=== PATIENT | male | born 1950 | race Caucasian/White ===

== ENCOUNTER → 2016-07-16 | Outpatient (CLI) | payer BC ==
[~2016-07-16] MED LIST: ACET5LIQ PO; CIPR1TAB11 PO; ENOX120I SQ; GUAI1LIQ7 PEG; METR-163 PO; MUCINEX PO; ONDA-63 PEG; TANGY TANGERINE PO; WARF5TAB7 PO; WARF7.5T PO; WARF7.5T4 PO; [UNRECOGNIZED DRUG - OTHER]; [UNRECOGNIZED DRUG - OTHER] PEG
== END | disposition home or self-care (01) ==
LOC: C.LABSPEC 12:14
PROVIDERS: ATTEND Registered Nurse
DX: T85.848A Pain due to other internal prosthetic devices, implants and grafts, initial encounter (principal); X58.XXXA Exposure to other specified factors, initial encounter

== ENCOUNTER → 2016-07-18 | Outpatient (CLI) | payer BC, OTHER ==
[2016-07-18 09:32] VITALS: BP 105/66; PULSE 82; TEMP 36.7; O2SAT 96
--- NOTE | 2016-07-18 10:39 | Radiation Oncology Follow-Up ---
Radiation Oncology Follow-Up Date of Visit Jul 18, 2016. 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 Chemotherapy comprised of weekly cisplatin Radiation completed 06/18/2016 received 7000 cGy Last Edited By: Alethea Salomon on Jun 28, 2016 12:52 (Alethea Salomon PA-C) History of Present Illness Mr. Fagan is a 66-year-old male with a history of chewing tobacco who recently presented with a right palpable neck mass. He was referred by his primary care physician and had a CT neck completed on 03/18/2016 which revealed : "IMPRESSION: 1. Partially necrotic mass mid right soft tissue neck region involving the anterior margin of the sternocleidomastoid muscle as well as the medial inferior aspect of the right parotid. 2. No evidence for airway compromise although there is very subtle right peritonsillar prominence as compared to the contralateral left. 3. Probable left retroclavicular 1.5 cm node. 4. Neoplastic processes diagnosis of exclusion." The patient was subsequently referred to Dr. Summers evaluated the patient and performed an examination which revealed induration of the right tonsil with firmness to palpation that extended to the inferior pole of the right tonsil but no involvement of the base of tongue. Dr. Summers also performed an NPL exam which did not reveal any extension to the base of tongue or any other involvement beyond the right tonsil. The patient was subsequently referred to Dr. Curiel from ENT at [facility] who did examine the patient and attempted 1 biopsy in the office and then took him to the operating room for a [employer] laryngoscopy with biopsy on 03/26/2016. He did biopsy the right palatine tonsil which was positive for non-keratinized squamous cell carcinoma (p16 status is unavailable the time of our consultation from the pathology report and has been requested). In conclusion, Dr. Curiel advised against transoral resection of the tonsillar tumor due to a retropharyngeal carotid and recommended up front chemotherapy and radiation therapy. The patient subsequently had a PET/CT scan on 04/01/2016 which showed no evidence of distant metastatic disease and reported these findings in the head and neck region: "HEAD AND NECK: There is 1.8 cm FDG avid right tonsillar mass which demonstrates intense FDG uptake with an SUV max of 7. There is again noted the right neck mass/lymph nodes anterior to the right sternocleidomastoid muscle. This measures 4.0 x 2.4 cm. The necrosis may have resolved. This also demonstrates intense FDG uptake with an SUV max of 5.7. There is moderate FDG uptake associated with a right lateral retropharyngeal 1 cm lymph node demonstrating an SUV max of 3. This is consistent with a metastatic focus." The patient was subsequently seen in consultation by Dr. Jean-Paul France from medical oncology who discussed chemotherapy and radiation therapy. The patient and his family stated they wanted to further considered options including homeopathic medicine. In the interim, we are seeing the patient to discuss the role of radiation therapy. Overall, the patient is doing relatively well. He states his energy, appetite and weight are all stable. He denies any dysphagia. He has no other complaints. He completed combined radiation and chemotherapy. Radiation was completed 06/18 he received 7000 cGy. (Alethea Salomon PA-C) Interim History Over this past month he has steadily increased his oral intake. He is eating solid foods. His taste is steadily improving. He continues to have xerostomia. He drinks water frequently. He is using Biotene as well as salt water rinses. His weight is stable. He did have a small red area just beside the PEG tube insertion site. This was cultured. Results are pending. This was performed at gastroenterology. He has mild drainage that occurs daily around the site. There is no area of increasing redness around the tube. He has been seen at medical oncology and there is been recommendation for a PET scan within the next 2 weeks. He is seeing on Friday. (Alethea Salomon PA-C) Allergies Coded Allergies: No Known Allergies (Verified , 06/21/16) Home Medications Scheduled Guaifenesin (Mucinex Chest Congestion), 2 OZ PEG TID Multiple Vitamins W/ Minerals (Multivitamin), 2 TSP PEG DAILY Warfarin Sod (Jantoven), 7.5 MG PO DAILY Scheduled PRN Acetaminophen (Tylenol Children's Susp), 30 ML PO DAILY PRN for Pain or Fever Review of Systems Gastrointestinal: Symptoms: Constipation GI Comments: takes extra fiber thru peg tube as needed Oral: Symptoms: Scant Saliva/Dry Mouth, Mild Soreness, Thick/Viscid/Mucid Saliva Other Oral Symptoms: some difficulty swallowing , tongue is sore, sl sore throat Respiratory: Symptoms: WNL Urinary: Symptoms: Nocturia Comments: nocturia times 6 - 7 times, drinking a lot of water Skin: Symptoms: No Problems (Alethea Salomon PA-C) Physical Exam Vital Signs Date Time Temp Pulse Resp B/P Pulse Ox O2 Delivery O2 Flow Rate FiO2 07/18/16 09:32 36.7 82 16 105/66 96 Pain: Side: Bilateral Patient Pain Scale: 0 - 10 Initial Pain Intensity: 0.0 Fatigue: None General Appearance: no apparent distress Eyes: normal inspection, EOMI ENT: hearing grossly normal, + pertinent finding (there is one small area of mucositis noted in the right soft palate area. The mouth has greatly improved over the past month. There are no visible lesions in the area of his tonsil. There are no exudates of the tongue or buccal mucosa.) Neck: no adenopathy Respiratory/Chest: lungs clear, no respiratory distress, no accessory muscle use Cardiovascular: regular rate, rhythm, no gallop, no murmur Abdomen: non tender, soft Extremities: no pedal edema Neurologic/Psychiatric: no motor/sensory deficits, alert, normal mood/affect Lymphatic: no adenopathy (Alethea Salomon PA-C) Laboratory Studies Test 05/21/16 21:45 05/21/16 23:00 06/21/16 21:40 06/25/16 14:30 White Blood Count 5.90 K/uL (4.8-10.8) 1.90 K/uL (4.8-10.8) Red Blood Count 4.21 M/uL (4.7-6.1) 2.89 M/uL (4.7-6.1) Hemoglobin 12.7 g/dL (14.0-18.0) 8.9 g/dL (14.0-18.0) Hematocrit 36.5 % (42-52) 25.5 % (42-52) Mean Corpuscular Volume 86.7 fL (80-100) 88.2 fL (80-100) Mean Corpuscular Hemoglobin 30.2 pg (25-34) 30.8 pg (25-34) Mean Corpuscular Hemoglobin Concent 34.8 g/dl (32-36) 34.9 g/dl (32-36) Platelet Count 183 K/uL (130-400) 118 K/uL (130-400) Mean Platelet Volume 9.9 fL (7.4-10.4) 9.3 fL (7.4-10.4) Neutrophils (%) (Auto) 85.0 % 61.0 % Lymphocytes (%) (Auto) 4.9 % 11.1 % Monocytes (%) (Auto) 9.2 % 27.4 % Eosinophils (%) (Auto) 0.5 % 0.5 % Basophils (%) (Auto) 0.2 % 0.0 % Neutrophils # (Auto) 5.02 K/uL (1.4-6.5) 1.16 K/uL (1.4-6.5) Lymphocytes # (Auto) 0.29 K/uL (1.2-3.4) 0.21 K/uL (1.2-3.4) Monocytes # (Auto) 0.54 K/uL (0.11-0.59) 0.52 K/uL (0.11-0.59) Eosinophils # (Auto) 0.03 K/uL (0-0.5) 0.01 K/uL (0-0.5) Basophils # (Auto) 0.01 K/uL (0-0.2) 0.00 K/uL (0-0.2) RDW Standard Deviation 39.4 fL (36.4-46.3) 45.8 fL (36.4-46.3) RDW Coefficient of Variation 12.7 % (11.5-14.5) 15.4 % (11.5-14.5) Immature Granulocyte % (Auto) 0.2 % 0.0 % Immature Granulocyte # (Auto) 0.01 K/uL (0.00-0.02) 0.00 K/uL (0.00-0.02) Sodium Level 140 mmol/L (136-145) 139 mmol/L (136-145) Potassium Level 4.2 mmol/L (3.5-5.1) 4.7 mmol/L (3.5-5.1) Chloride Level 101 mmol/L (98-107) 101 mmol/L (98-107) Carbon Dioxide Level 31 mmol/L (21-32) 30 mmol/L (21-32) Anion Gap 8.0 mmol/L (3-11) 8.0 mmol/L (3-11) Blood Urea Nitrogen 21 mg/dl (7-18) 24 mg/dl (7-18) Creatinine 1.00 mg/dl (0.60-1.40) 0.95 mg/dl (0.60-1.40) Est Creatinine Clear Calc Drug Dose 67.3 ml/min 70.8 ml/min Estimated GFR () 91.8 97.7 Estimated GFR (Non- 79.2 84.3 BUN/Creatinine Ratio 21.3 (10-20) 25.2 (10-20) Random Glucose 115 mg/dl (70-99) 100 mg/dl (70-99) Calcium Level 9.2 mg/dl (8.5-10.1) 8.7 mg/dl (8.5-10.1) Magnesium Level 2.1 mg/dl (1.8-2.4) Total Bilirubin 0.8 mg/dl (0.2-1) 0.2 mg/dl (0.2-1) Aspartate Amino Transferase (AST) 23 U/L (15-37) 12 U/L (15-37) Alanine Aminotransferase (ALT) 24 U/L (12-78) 13 U/L (12-78) Alkaline Phosphatase 65 U/L (45-117) 62 U/L (45-117) Total Protein 6.9 gm/dl (6.4-8.2) 6.0 gm/dl (6.4-8.2) Albumin 3.4 gm/dl (3.4-5.0) 2.9 gm/dl (3.4-5.0) Globulin 3.5 gm/dl (2.5-4.0) Albumin/Globulin Ratio 1.0 (0.9-2) Chemistry Specimen Hemolysis Urine Color DK YELLOW Urine Appearance CLEAR (CLEAR) Urine pH 8.5 (4.5-7.5) Urine Specific [place] 1.019 (1.000-1.030) Urine Protein NEG (NEG) Urine Glucose (UA) NEG (NEG) Urine Ketones 3+ (NEG) Urine Occult Blood NEG (NEG) Urine Nitrite NEG (NEG) Urine Bilirubin NEG (NEG) Urine Urobilinogen NEG (NEG) Urine Leukocyte Esterase NEG (NEG) Large Platelets 1+ Polychromasia 1+ Prothrombin Time 10.2 SECONDS (9.0-12.0) 12.0 SECONDS (9.0-12.0) Prothrombin Time INR 1.0 (0.9-1.1) 1.1 (0.9-1.1) PTT 25.9 SECONDS (21.0-31.0) Partial Thromboplastin Ratio 1.0 Direct Bilirubin < 0.1 mg/dl (0-0.2) Test 07/08/16 13:44 07/12/16 09:15 POC Prothrombin Time INR 2.4 (0.9-1.1) 2.3 (0.9-1.1) (Alethea Salomon PA-C) Assessment & Plan Plan: Continue regular follow-up with . He'll be seeing him on Friday. Continue regular follow-up with radical oncology. Patient was seen and examined by Dr. Quezada. He'll continue the Biotene and salt water rinses. We're going to discuss the timing of PET scan with medical oncology. We'll plan to perform NPL examination at his next visit. He is aware that the wound culture is pending. They will call gastroenterology they do not hear the results. Currently the area is very small and he does not have any enlarging area of redness around the PEG tube. We asked him to return to our office in 6 months. He may call if she has any questions or concerns in the interim. (Alethea Salomon PA-C) I agree with note created by Alethea Salomon PA-C. I reviewed the patient's chart and information with her. I have examined and evaluated the patient. I reviewed relevant clinical information and answered the patient's and/or family' s questions. (Veeral. Quezada MD) Total Time In Follow-Up I spent 15 minutes speaking to the patient performing examination. He has been 15 minutes reviewing information in completing this note. (Alethea Salomon PA-C) I spent 15 minutes examining and counseling the patient. (Veeral. Quezada MD) Copy To Terry Summers MD; Jean-Paul France D.O.; Rommel Adame M.D.
== END | disposition home or self-care (01) ==
LOC: C.ONC 09:28
PROVIDERS: ATTEND Radiology Radiation Oncology
DX: Z08 Encounter for follow-up examination after completed treatment for malignant neoplasm (principal); Z92.3 Personal history of irradiation; Z85.89 Personal history of malignant neoplasm of other organs and systems

== ENCOUNTER → 2016-08-16 | Day surgery (SDC) | payer BC ==
[2016-08-15 10:52] VITALS: Ht 167.6 cm; Wt 71.8 kg
[~2016-08-16] VITALS: Ht 167.6 cm; Wt 71.8 kg
[~2016-08-16] MED LIST changes: -ENOX120I SQ; -GUAI1LIQ7 PEG; -ONDA-63 PEG; -WARF7.5T PO; -WARF7.5T4 PO; -[UNRECOGNIZED DRUG - OTHER]; -[UNRECOGNIZED DRUG - OTHER] PEG
[2016-08-16 13:18] VITALS: TEMP 36.8
--- NOTE | 2016-08-16 13:49 | Endo History and Physical ---
History & Physical Date of Service: Aug 16, 2016. Chief Complaint: Patient no longer needs. Referring Physician: Dr. Quezada History of Present Illness 66 yo CM who presents for PEG tube removal as it is no longer needed. Past Medical History Gastrointestinal Disorder, Cancer, Thrombophlebitis Past Surgical History Hx Cardiac Surgery: No Hx Internal Defibrillator: No Hx Pacemaker: No Hx Abdominal Surgery: Yes (UMBILICAL HERNIA REPAIR) Hx Post-Op Nausea and Vomiting: No Hx Cancer Surgery: No Hx Thoracic Surgery: No Hx Orthopedic: No Hx Urinary Tract Surgery: No Family History Polyp Social History Smoking Status: Never Smoker Hx Substance Use: No Hx Alcohol Use: Yes (RARELY) Allergies Coded Allergies: No Known Allergies (Verified , 08/15/16) Current Medications Reported Home Medications Medications Dose Route/Sig Max Daily Dose Days Date Category Dose Instructions [Tangy Milano] 1 Dose PO QAM 08/15/16 Reported [Mucinex] 1 Dose PO TID 08/15/16 Reported TAKES LIQUID FORM Tylenol Children's Susp (Acetaminophen) Unknown Strength Liq 30 Ml PO DAILY PRN 06/21/16 Reported Vital Signs Weight (Kilograms): 71.82 Height (Feet): 5 Height (Inches): 6 Date Time Temp Pulse Resp B/P Pulse Ox O2 Delivery O2 Flow Rate FiO2 08/16/16 13:18 36.8 69 20 134/78 98 Room Air Physical Exam General Appearance: WD/WN, no apparent distress Respiratory/Chest: Auscultation: breath sounds normal Cardiovascular: Heart Auscultation: RRR Abdomen: Bowel Sounds: normal Inspection & Palpation: soft, non-distended, no tenderness, guarding & rebound Assessment and Plan Assessment: 66 yo CM who presents for PEG tube removal as it is no longer needed. Plan: Proceed with PEG tube removal.
[2016-08-16 13:55] VITALS: BP 125/76; PULSE 63; O2SAT 96
--- NOTE | 2016-08-16 13:56 | Discharge Instructions ---
Endoscopy Patient Instructions Date / Procedure(s) Performed Aug 16, 2016. Other Allergy Information Coded Allergies: No Known Allergies (Verified , 08/15/16) Discharge Date / Findings Aug 16, 2016. Successful PEG tube removal Medication Instructions Stopped Medication(s): Patient stopped coumadin 08/12/16. Patient using lovenox. Provider Instructions Following Day: - Return to full activity which may include returning to work/school. Diet Start your diet with liquids and light foods (jello, soup, juice, toast). Then advance diet as tolerated. Treatment For Common After Affects For mild abdominal pain, bloating, or excessive gas: - Rest - Eat lightly - Lie on right side Follow-Up Information Follow-up with Dr. Quezada as scheduled Anesthesia Information What You Should Know You have had a procedure that required some medicine to reduce anxiety and discomfort. This treatment is called moderate sedation. After receiving the treatment, you may be sleepy, but you will be able to breathe on your own. The effects of the treatment may last for several hours. Follow these instructions along with Activity/Diet recommendations noted above: * Do NOT do anything where dizziness or clumsiness would be dangerous. * Rest quietly at home today, then you can be up and about tomorrow. * Have a responsible person stay with you the rest of today. * You may have had an I.V. today. If so, you may take the dressing off later today. Recommendations Call your doctor if: * Trouble breathing * Continuous vomiting for more than 24 hours * Temperature above 101 degrees * Severe abdominal pain or bloating * Pain not relieved by pain medicine ordered * There is increased drainage or redness from any incision * A large amount of rectal bleeding greater than 2-3 tablespoons. (If you had a polyp/s removed or have hemorrhoids, a small amount of blood - from the rectum is to be expected.) * You have any unanswered questions or concerns. IN THE EVENT OF A SERIOUS EMERGENCY, GO TO THE NEAREST EMERGENCY ROOM Your discharge instructions were prepared by provider Satish Santizo. Patient Instructions Signature Page Yordy Blaisesharlene Patient (or Guardian) Signature/Date: I have read and understand the instructions given to me by my caregivers. Caregiver/RN/Doctor Signature/Date: The above-named patient and/or guardian has received patient instructions on this date. + Original Patient Signature Page (only) stays with chart. Please make copy for patient.
--- NOTE | 2016-08-16 14:05 | GI REPORT ---
Procedure Date: 08/16/2016 2:03 PM Procedure: Non-endoscopic Tube Procedure Indications: Remove PEG tube (no longer needed) Medicines: None Complications: No immediate complications. Estimated Blood Loss: Estimated blood loss: none. Procedure: After obtaining informed consent, the site was prepped and the procedure was performed. The procedure was accomplished without difficulty. The patient tolerated the procedure well. Findings: Due to an ability to resume oral intake, the patient no longer requires the gastrostomy tube. The gastrostomy tube was no longer necessary and required removal. The existing PEG site was cleaned. The existing PEG balloon was deflated and by using traction, removal was easily accomplished. Impression: - The gastrostomy tube was removed because it was no longer necessary. - No specimens collected. Recommendation: - Advance diet as tolerated. - Discharge patient to home (ambulatory). - Continue present medications. Satish Santizo, DO 08/16/2016 2:04:56 PM This report has been signed electronically. Note Initiated On: 08/16/2016 2:03 PM I attest to the content of the Intraoperative Record and orders documented therein, exceptions below
== END | disposition home or self-care (01) ==
LOC: C.GI 11:53
PROVIDERS: ATTEND Internal Medicine
DX: Z43.1 Encounter for attention to gastrostomy (principal)

== ENCOUNTER → 2016-09-16 | Outpatient (CLI) | payer BC ==
--- NOTE | 2016-09-16 12:08 | DIAGNOSTIC IMAGING REPORT ---
PET/CT CLINICAL HISTORY: Head and neck cancer. COMPARISON STUDY: PET/CT dated 04/01/2016. CT scan of the neck dated 03/08/2016. TECHNIQUE: One hour following the IV administration of 11.52 mCi of F-18 FDG, PET/CT examination was performed from the vertex through the bony pelvis. Noncontrast CT is performed for the purposes of anatomic correlation and attenuation correction. Note that this does not reflect a diagnostic CT examination. Images were reviewed on a separate [employer] independent workstation. Fused images were obtained. Standard uptake values reported are maximum values within the region of interest expressed in gm/mL. FINDINGS: PET FINDINGS: Head and neck: There is expected physiologic activity within the visualized brain parenchyma at the skull base and the salivary glands. The previously identified right tonsillar mass as well as FDG avid right cervical chain lymphadenopathy is no longer identified. No abnormal FDG activity localizes to the frontal soft tissues on today's examination. No cervical lymphadenopathy is seen. Thorax: Evaluation of the thorax demonstrates expected physiologic myocardial activity. Abdomen and pelvis: There is expected activity within the liver, spleen, kidneys, renal collecting system, and bladder. Low-level bowel activity is likely within physical limits. FDG activity in the left groin with a maximum SUV of 6.5 is likely related to previous herniorrhaphy. This is similar to the 04/01/2016 examination. There is intense FDG activity localizing the rectum/anus with a maximum SUV of 12.0. Unenhanced CT images: Brain parenchyma is normal as visualized. The bony orbits appear intact and the orbital contents are within normal limits. The paranasal sinuses appear clear. Small mastoid effusions are suspected. The salivary glands are normal as imaged. The thyroid gland is diminutive. No cervical lymphadenopathy is identified. The thoracic aorta is normal in caliber. The heart is normal in size and without pericardial effusion. There are scattered coronary artery calcifications. Emphysematous change is noted. There is no airspace consolidation or pleural effusion. No concerning pulmonary lesion is identified. No axillary, hilar, or mediastinal lymphadenopathy is seen. There are scattered hepatic cysts which measure up to 5 cm. Additional subcentimeter hepatic densities also likely represent cysts but are too small for definitive characterization. The gallbladder, spleen, adrenal glands, pancreas, and kidneys are grossly unremarkable. Renal pelvis is again noted on the left. The abdominal aorta is normal in course and caliber. No bowel obstruction is seen. There is mild to moderate colonic diverticulosis without CT evidence of acute diverticulitis. Normal appendix is identified. No peritoneal free air or abdominal ascites is seen. There is no abdominal, pelvic, or inguinal lymphadenopathy. The bladder, prostate, and seminal vesicles are normal as visualized. Findings suggest previous bilateral inguinal herniorrhaphy. No lytic or blastic bony lesions are identified. Mild degenerative change is observed throughout the spine. IMPRESSION: 1. The previously identified FDG avid right tonsillar mass and FDG avid right cervical adenopathy seen on 04/01/2016 have resolved. 2. No FDG avid disease is identified on today's examination. There is no evidence of distant metastatic disease. 3. There is intense FDG activity localizing the rectum/anus with a maximum SUV of 12.0. This is indeterminant, and correlation with direct visualization/colonoscopy is recommended for further assessment. 4. Mild emphysema. 5. Colonic diverticulosis without CT evidence of acute diverticulitis. 6. Additional findings as above. Electronically signed by: Vishal Staples M.D. 09/16/2016 12:06 PM Dictated Date/Time: 09/16/2016 11:36 AM
== END | disposition home or self-care (01) ==
LOC: C.PET 08:32
PROVIDERS: ATTEND Nurse Practitioner
DX: C09.0 Malignant neoplasm of tonsillar fossa (principal)

== ENCOUNTER → 2016-10-25 | Outpatient (CLI) | payer BC ==
[~2016-10-25] MED LIST changes: -ACET5LIQ PO; +ARTICHOKE EXTRACT PO; +MISCCAP PO; +MISCCAP80 PO; -MUCINEX PO; +NATT100C PO; +OMEG10007 PO; +OPTIRAY 320 IV PRN; +[UNRECOGNIZED DRUG - OTHER] PO
--- NOTE | 2016-10-25 08:06 | DIAGNOSTIC IMAGING REPORT ---
LEFT HEEL 2 VIEWS HISTORY: M77.32 Heel spur, [id number] COMPARISON: None. FINDINGS: There is no fracture or dislocation. Soft tissues are unremarkable. No radiopaque foreign bodies. Tiny plantar heel spur. IMPRESSION: No fractures. Tiny plantar heel spur. Electronically signed by: Mauricio Brumfield M.D. 10/25/2016 8:04 AM Dictated Date/Time: 10/25/2016 8:04 AM
--- NOTE | 2016-10-25 08:26 | DIAGNOSTIC IMAGING REPORT ---
ABDOMEN AND PELVIS CT WITH IV AND ORAL CONTRAST CT DOSE: 281.27 mGy.cm HISTORY: K57.30 Diverticulosis of [id number] Abdominal tenderness, LLQ TECHNIQUE: Multiaxial CT images of the abdomen and pelvis were performed following the use of intravenous and oral contrast. COMPARISON STUDY: PET CT 09/16/2016. FINDINGS: The lung bases are clear. No pneumoperitoneum. No pneumatosis. No suspicious lytic or blastic osseous lesions. Multiple stable hypodense lesions within the liver consistent with cysts. These measure up to 5 cm in size as seen within the right hepatic lobe. The gallbladder, spleen, adrenal glands, pancreas, and right kidney are unremarkable. Left peripelvic renal cysts are again noted. No hydronephrosis. No retroperitoneal lymphadenopathy. Normal caliber abdominal aorta. No evidence for bowel obstruction. Normal appendix. Mild bladder wall thickening, unchanged. The prostate gland is mildly enlarged. Postoperative changes seen within the left groin. Colonic diverticulosis. There is a thickened diverticulum at the junction of the descending colon/sigmoid colon with mild pericolonic fat stranding. This is best seen on image 297. This is consistent with mild acute diverticulitis. No perforation or abscess identified. IMPRESSION: 1. Mild acute diverticulitis at the junction of the descending colon/sigmoid colon. No perforation or abscess identified at this time. 2. Additional findings as described above. Electronically signed by: aMuricio Brumfield M.D. 10/25/2016 8:25 AM Dictated Date/Time: 10/25/2016 8:19 AM
== END | disposition home or self-care (01) ==
LOC: C.CTS 07:14
PROVIDERS: ATTEND Internal Medicine
DX: M77.32 Calcaneal spur, left foot (principal); K57.30 Diverticulosis of large intestine without perforation or abscess without bleeding; R10.814 Left lower quadrant abdominal tenderness

== ENCOUNTER → 2016-10-31 | Outpatient (CLI) | payer BC ==
[~2016-10-31] MED LIST changes: -OPTIRAY 320 IV PRN
== END | disposition home or self-care (01) ==
LOC: C.PATHSPEC 17:28
DX: K14.8 Other diseases of tongue (principal)

== ENCOUNTER → 2016-12-19 | Outpatient (CLI) | payer BC ==
[2016-07-18 09:32] VITALS: BP 105/66; PULSE 82
[~2016-12-19] MED LIST changes: -ARTICHOKE EXTRACT PO; -CIPR1TAB11 PO; -METR-163 PO; -MISCCAP PO; -MISCCAP80 PO; -NATT100C PO; -OMEG10007 PO; -[UNRECOGNIZED DRUG - OTHER] PO
[2016-12-19 14:10] VITALS: BP 105/63; PULSE 72; TEMP 36.7; O2SAT 97
--- NOTE | 2016-12-19 17:02 | Radiation Oncology Follow-Up ---
Radiation Oncology Follow-Up Date of Visit Dec 19, 2016. 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 Chemotherapy comprised of weekly cisplatin Radiation completed 06/18/2016 received 7000 cGy Last Edited By: Alethea Salomon on Jun 28, 2016 12:52 (Alethea Salomon PA-C) History of Present Illness Mr. Fagan is a 66-year-old male with a history of chewing tobacco who recently presented with a right palpable neck mass. He was referred by his primary care physician and had a CT neck completed on 03/18/2016 which revealed : "IMPRESSION: 1. Partially necrotic mass mid right soft tissue neck region involving the anterior margin of the sternocleidomastoid muscle as well as the medial inferior aspect of the right parotid. 2. No evidence for airway compromise although there is very subtle right peritonsillar prominence as compared to the contralateral left. 3. Probable left retroclavicular 1.5 cm node. 4. Neoplastic processes diagnosis of exclusion." The patient was subsequently referred to Dr. Summers evaluated the patient and performed an examination which revealed induration of the right tonsil with firmness to palpation that extended to the inferior pole of the right tonsil but no involvement of the base of tongue. Dr. Summers also performed an NPL exam which did not reveal any extension to the base of tongue or any other involvement beyond the right tonsil. The patient was subsequently referred to Dr. Curiel from ENT at [facility] who did examine the patient and attempted 1 biopsy in the office and then took him to the operating room for a MicroDirect laryngoscopy with biopsy on 03/26/2016. He did biopsy the right palatine tonsil which was positive for non-keratinized squamous cell carcinoma (p16 status is unavailable the time of our consultation from the pathology report and has been requested). In conclusion, Dr. Curiel advised against transoral resection of the tonsillar tumor due to a retropharyngeal carotid and recommended up front chemotherapy and radiation therapy. The patient subsequently had a PET/CT scan on 04/01/2016 which showed no evidence of distant metastatic disease and reported these findings in the head and neck region: "HEAD AND NECK: There is 1.8 cm FDG avid right tonsillar mass which demonstrates intense FDG uptake with an SUV max of 7. There is again noted the right neck mass/lymph nodes anterior to the right sternocleidomastoid muscle. This measures 4.0 x 2.4 cm. The necrosis may have resolved. This also demonstrates intense FDG uptake with an SUV max of 5.7. There is moderate FDG uptake associated with a right lateral retropharyngeal 1 cm lymph node demonstrating an SUV max of 3. This is consistent with a metastatic focus." The patient was subsequently seen in consultation by Dr. Jean-Paul France from medical oncology who discussed chemotherapy and radiation therapy. The patient and his family stated they wanted to further considered options including homeopathic medicine. In the interim, we are seeing the patient to discuss the role of radiation therapy. Overall, the patient is doing relatively well. He states his energy, appetite and weight are all stable. He denies any dysphagia. He has no other complaints. He completed combined radiation and chemotherapy. Radiation was completed 06/18 he received 7000 cGy (Alethea Salomon PA-C) Interim History He's been doing well over the past 6 months. His taste has steadily improved. He feels that he has regained his taste 75%. He does continue to have problems with xerostomia. He drinks water frequently. He drinks frequently while eating his meals. He does have to be careful with swallowing meats. He chews these up well and it is helpful to eat meat with gravy. He does have difficulty at times with swallowing bread. He had developed a sore area in his mouth and was seen by ENT. This was biopsied and was benign. The soreness has now resolved. The PEG tube was removed. He has had no difficulty with the PEG tube site since our last visit. (Alethea Salomon PA-C) Allergies Coded Allergies: No Known Allergies (Verified , 08/15/16) Home Medications Scheduled Warfarin Sod (Jantoven), 7.5 MG PO 5XWK Warfarin Sod (Jantoven), 10 MG PO 2XWK [Tangy [place]], 1 DOSE PO QAM Review of Systems Gastrointestinal: Symptoms: WNL GI Comments: takes extra fiber thru peg tube as needed Oral: Symptoms: Scant Saliva/Dry Mouth Other Oral Symptoms: Drinks water when eating meat or dry food;Denies trouble w/tongue motion Respiratory: Symptoms: WNL Urinary: Symptoms: WNL Comments: nocturia times 6 - 7 times, drinking a lot of water Skin: Symptoms: No Problems (Alethea Salomon PA-C) Physical Exam Vital Signs Date Time Temp Pulse Resp B/P (MAP) Pulse Ox O2 Delivery O2 Flow Rate FiO2 12/19/16 14:10 36.7 72 12 105/63 97 Pain: Side: Bilateral Patient Pain Scale: 0 - 10 Initial Pain Intensity: 0.0 Fatigue: None General Appearance: no apparent distress Eyes: normal inspection, EOMI ENT: normal ENT inspection, hearing grossly normal, pharynx normal, + pertinent finding (examination of the posterior pharynx shows no erythema or edema. No sign of any recurrence in the area of his tonsil. Normal evaluation of the tongue, floor the mouth, and buccal mucosa.) Neck: no adenopathy, thyroid normal Respiratory/Chest: lungs clear, no respiratory distress, no accessory muscle use Cardiovascular: regular rate, rhythm, no gallop, no murmur Extremities: no pedal edema Neurologic/Psychiatric: no motor/sensory deficits, alert, normal mood/affect Skin: warm/dry (Alethea Salomon PA-C) Laboratory Studies Test 11/29/16 08:38 12/13/16 09:09 POC Prothrombin Time INR 1.9 (0.9-1.1) 2.0 (0.9-1.1) (Alethea Salomon PA-C) Assessment & Plan Plan: Patient is also seen and examined by Dr. Quezada. He has recheck scoping's every 3 months by ENT he recently was seen by medical oncology. Laboratory studies have been ordered and will be including thyroid function study. He drinks water frequently to help with the xerostomia. Recheck scanning per Dr. France. We asked him to return to our office in 9 months. He may call if he has any questions or concerns in the interim. (Alethea Salomon PA-C) I agree with note created by Alethea Salomon PA-C. I reviewed the patient's chart and information with her. I have examined and evaluated the patient. I reviewed relevant clinical information and answered the patient's and/or family' s questions. (Veeral. Quezada MD) Total Time In Follow-Up I spent 20 minutes speaking to the patient forming examination. I spent 15 minutes reviewing information and completing this note. (Alethea Salomon PA-C) I spent 15 minutes examining and counseling the patient. (Veeral. Quezada MD) Copy To Terry Summers MD; Jean-Paul France D.O.; Rommel Adame M.D.
== END | disposition home or self-care (01) ==
LOC: C.ONC 14:02
PROVIDERS: ATTEND Physician Assistant Medical
DX: Z08 Encounter for follow-up examination after completed treatment for malignant neoplasm (principal); Z92.3 Personal history of irradiation; Z85.818 Personal history of malignant neoplasm of other sites of lip, oral cavity, and pharynx

== ENCOUNTER → 2017-01-06 | Day surgery (SDC) | payer BC ==
[2016-12-27 14:07] VITALS: BMI 25.0
[~2017-01-06] VITALS: Ht 167.6 cm; Wt 70.0 kg
[~2017-01-06] MED LIST changes: +LIDOCAINE HCL 2% 2 ML VIAL (20MG/ML) ONE; +MIDAZOLAM HCL 1 MG/ML 2ML VIAL ONE; +PROPOFOL IV EMULSION 10 MG/ML 20 ML VIAL IV ONE; +SODIUM CHLORIDE 0.9% 500ML 500 ML IV ONE
[2017-01-06 10:45] VITALS: Ht 167.6 cm; Wt 70.0 kg
[2017-01-06 10:55] VITALS: TEMP 36.7
--- NOTE | 2017-01-06 11:17 | Endo History and Physical ---
History & Physical Date of Service: Jan 06, 2017. Chief Complaint: hx diverticulitis Referring Physician: Dr. Adame History of Present Illness 66 yo CM who presents for colonoscopy for followup secondary to diverticulitis. Past Medical History Gastrointestinal Disorder, Cancer, Thrombophlebitis Past Surgical History Hx Cardiac Surgery: No Hx Internal Defibrillator: No Hx Pacemaker: No Hx Abdominal Surgery: Yes (UMBILICAL HERNIA REPAIR) Hx of Implantable Prosthesis: No Hx Post-Op Nausea and Vomiting: No Hx Cancer Surgery: No Hx Thoracic Surgery: No Hx Orthopedic: No Hx Urinary Tract Surgery: No Family History Polyp Social History Smoking Status: Never Smoker Hx Substance Use: No Hx Alcohol Use: Yes (RARELY) Allergies Coded Allergies: No Known Allergies (Verified , 01/06/17) Current Medications Reported Home Medications Medications Dose Route/Sig Max Daily Dose Days Date Category Dose Instructions Juntoven (Warfarin Sodium) 5 Mg Tab 10 Mg PO 2XWK 10/03/16 Reported Friday and Friday Jantoven (Warfarin Sodium) 5 Mg Tab 7.5 Mg PO 5XWK 08/26/16 Reported [Fabienne Elizalde] 1 Dose PO QAM 08/15/16 Reported Vital Signs Weight (Kilograms): 70.00 Height (Feet): 5 Height (Inches): 6 Date Time Temp Pulse Resp B/P (MAP) Pulse Ox O2 Delivery O2 Flow Rate FiO2 01/06/17 10:55 36.7 71 20 147/84 (105) 98 Room Air Physical Exam General Appearance: WD/WN, no apparent distress Respiratory/Chest: Auscultation: breath sounds normal Cardiovascular: Heart Auscultation: RRR Abdomen: Bowel Sounds: normal Inspection & Palpation: soft, non-distended, no tenderness, guarding & rebound Assessment and Plan Assessment: 66 yo CM who presents for colonoscopy for followup secondary to diverticulitis. Plan: Proceed with colonoscopy.
--- NOTE | 2017-01-06 12:02 | Discharge Instructions ---
Endoscopy Patient Instructions Date / Procedure(s) Performed Jan 06, 2017. Colonoscopy Allergy Information Coded Allergies: No Known Allergies (Verified , 01/06/17) Discharge Date / Findings Jan 06, 2017. Colon polyp Diverticulosis Internal hemorrhoids Medication Instructions Stopped Medication(s): warfarin stopped. Provider Instructions Activity Restrictions - No exercising or heavy lifting for 24 hours. - Do not drink alcohol the day of the procedure. - Do not drive a car or operate machinery until the day after the procedure. - Do not make any important decisions or sign important papers in 24 hours after the procedure. Following Day: - Return to full activity which may include returning to work/school. Diet Start your diet with liquids and light foods (jello, soup, juice, toast). Then eat your usual diet if not nauseated. Treatment For Common After Affects For mild abdominal pain, bloating, or excessive gas: - Rest - Eat lightly - Lie on right side Follow-Up Information Follow-up with Dr. Adame as scheduled Anesthesia Information What You Should Know You have had a procedure that required some medicine to reduce anxiety and discomfort. This treatment is called moderate sedation. After receiving the treatment, you may be sleepy, but you will be able to breathe on your own. The effects of the treatment may last for several hours. Follow these instructions along with Activity/Diet recommendations noted above: * Do NOT do anything where dizziness or clumsiness would be dangerous. * Rest quietly at home today, then you can be up and about tomorrow. * Have a responsible person stay with you the rest of today. * You may have had an I.V. today. If so, you may take the dressing off later today. Recommendations Call your doctor if: * Trouble breathing * Continuous vomiting for more than 24 hours * Temperature above 101 degrees * Severe abdominal pain or bloating * Pain not relieved by pain medicine ordered * There is increased drainage or redness from any incision * A large amount of rectal bleeding greater than 2-3 tablespoons. (If you had a polyp/s removed or have hemorrhoids, a small amount of blood - from the rectum is to be expected.) * You have any unanswered questions or concerns. IN THE EVENT OF A SERIOUS EMERGENCY, GO TO THE NEAREST EMERGENCY ROOM Your discharge instructions were prepared by provider Satish Santizo. Patient Instructions Signature Page Yordy Fagan Patient (or Guardian) Signature/Date: I have read and understand the instructions given to me by my caregivers. Caregiver/RN/Doctor Signature/Date: The above-named patient and/or guardian has received patient instructions on this date. + Original Patient Signature Page (only) stays with chart. Please make copy for patient.
--- NOTE | 2017-01-06 12:34 | Anesthesiology Progress Note ---
Anesthesia Post Op Note Date & Time Jan 06, 2017 at 12:34 Vital Signs Pain Intensity: 0 Vital Signs Past 12 Hours Date Time Temp Pulse Resp B/P (MAP) Pulse Ox O2 Delivery O2 Flow Rate FiO2 01/06/17 12:22 66 20 129/78 (95) 98 Room Air 01/06/17 12:07 67 20 126/77 (93) 96 Room Air 01/06/17 10:55 36.7 71 20 147/84 (105) 98 Room Air Notes Mental Status: alert / awake / arousable, participated in evaluation Pt Amnestic to Procedure: Yes Nausea / Vomiting: adequately controlled Pain: adequately controlled Airway Patency, RR, SpO2: stable & adequate BP & HR: stable & adequate Hydration State: stable & adequate On arrival to PACU it was noted that IV had infiltrated during case. After speaking to nurse, it was clear that the catheter became dislodged toward the end of the case when the patient made an abrupt movement, and infiltration occurred despite IV fluids free flowing. There may have been a small amount of propofol infused in to the subcutaneous fluid but it appears to have been almost exclusively normal saline. The catheter was aspirated and removed on recognition of the infiltration. After some time in discharge and elevation of the hand, swelling was decreased, perfusion and use of the fingers was adequate , and pain was minimal, though there was still fairly significant non-pitting edema in the L hand. I spoke with the patient regarding the remote possibility of infection or skin necrosis including increasing pain, warmth, inability to use fingers, or feelings of systemic illness. He knows to seek immediate evaluation of his hand if this happens. In the meantime, he may use warm compresses and elevation for symptomatic relief. The patient also agreed to a follow up phone call from the GI staff tomorrow, and we will be happy to follow his course from home tomorrow.
[2017-01-06 12:38] VITALS: BP 116/72; PULSE 56; O2SAT 97
--- NOTE | 2017-01-06 12:46 | GI REPORT ---
Procedure Date: 01/06/2017 11:36 AM Procedure: Colonoscopy Indications: Follow-up of diverticulitis Medicines: Monitored Anesthesia Care Complications: No immediate complications. Estimated Blood Loss: Estimated blood loss: none. Procedure: Pre-Anesthesia Assessment: - Prior to the procedure, a History and Physical was performed, and patient medications and allergies were reviewed. The patient's tolerance of previous anesthesia was also reviewed. The risks and benefits of the procedure and the sedation options and risks were discussed with the patient. All questions were answered, and informed consent was obtained. Prior Anticoagulants: The patient has taken Coumadin (warfarin), last dose was 5 days prior to procedure. ASA Grade Assessment: III - A patient with severe systemic disease. After reviewing the risks and benefits, the patient was deemed in satisfactory condition to undergo the procedure. After I obtained informed consent, the scope was passed under direct vision. Throughout the procedure, the patient's blood pressure, pulse, and oxygen saturations were monitored continuously. The Scope was introduced through the anus and advanced to the cecum, identified by appendiceal orifice and ileocecal valve. The colonoscopy was performed without difficulty. The patient tolerated the procedure well. The quality of the bowel preparation was good. The ileocecal valve, appendiceal orifice, and rectum were photographed. Findings: A 3 mm polyp was found in the descending colon. The polyp was sessile. The polyp was removed with a cold biopsy forceps. Resection and retrieval were complete. Multiple small-mouthed diverticula were found in the sigmoid colon. Non-bleeding internal hemorrhoids were found during retroflexion. The hemorrhoids were small. Impression: - One 3 mm polyp in the descending colon, removed with a cold biopsy forceps. Resected and retrieved. - Diverticulosis in the sigmoid colon. - Non-bleeding internal hemorrhoids. Recommendation: - Resume previous diet. - Continue present medications. - Repeat colonoscopy for surveillance based on pathology results. - Return to primary care physician as previously scheduled. Satish Santizo, DO 01/06/2017 12:02:11 PM This report has been signed electronically. Note Initiated On: 01/06/2017 11:36 AM I attest to the content of the Intraoperative Record and orders documented therein, exceptions below
== END | disposition home or self-care (01) ==
LOC: C.GI 10:28
PROVIDERS: ATTEND Internal Medicine
DX: D12.4 Benign neoplasm of descending colon (principal); K57.30 Diverticulosis of large intestine without perforation or abscess without bleeding; K64.8 Other hemorrhoids; I80.9 Phlebitis and thrombophlebitis of unspecified site; Z79.01 Long term (current) use of anticoagulants; Z83.71 Family history of colonic polyps

== ENCOUNTER → 2017-03-26 | Outpatient (CLI) | payer BC ==
[~2017-03-26] MED LIST changes: -LIDOCAINE HCL 2% 2 ML VIAL (20MG/ML) ONE; -MIDAZOLAM HCL 1 MG/ML 2ML VIAL ONE; -PROPOFOL IV EMULSION 10 MG/ML 20 ML VIAL IV ONE; -SODIUM CHLORIDE 0.9% 500ML 500 ML IV ONE
[2017-03-26 12:23] LABS: URINE APPEARANCE CLEAR (CLEAR); URINE BILIRUBIN NEG (NEG); URINE COLOR DK YELLOW; URINE EPITHELIAL CELL AUTO 0-5 /lpf (0-5); URINE NITRITE NEG (NEG); URINE SPECIFIC GRAVITY 1.012 (1.000-1.030); UROBILINOGEN NEG (NEG)
[2017-03-26 12:33] LABS: MANUAL MICROSCOPIC REQUIRED? NO; REVIEW REQ? NO
== END | disposition home or self-care (01) ==
LOC: C.LABBFT 09:26
PROVIDERS: ATTEND Internal Medicine
DX: R35.0 Frequency of micturition (principal)

== ENCOUNTER → 2017-09-17 | Outpatient (CLI) | payer BC ==
[~2017-09-17] MED LIST changes: +ARTICHOKE EXTRACT PO; +MISCCAP PO; +MISCCAP80 PO; +NATT100C PO; +OMEG10007 PO; +[UNRECOGNIZED DRUG - OTHER] PO
[2017-09-17 13:28] VITALS: BP 134/75; PULSE 76; TEMP 36.6; O2SAT 96
--- NOTE | 2017-09-17 14:01 | Radiation Oncology Follow-Up ---
Radiation Oncology Follow-Up Date of Visit Sep 17, 2017. Reason For Visit 9 month follow up Radiation Completion Date 06/18/16 Diagnosis (1) Oropharyngeal cancer Status: Resolved Onset Date: 03/26/2016 Location: right tonsil Histology Subtype: squamous cell carcinoma Stage: IV Permanent Comment: STAGING: Oropharynx, right tonsil, SCC, [id number], stage BLAINE Treatment: Combined radiation and chemotherapy. Chemotherapy comprised of weekly cisplatin Radiation completed 06/18/2016 received 7000 cGy Last Edited By: Alethea Salomon on Jun 28, 2016 12:52 History of Present Illness Mr. Fagan has a history of chewing tobacco who presented with a right palpable neck mass. He was referred by his primary care physician and had a CT neck completed on 03/18/2016 which revealed: "IMPRESSION: 1. Partially necrotic mass mid right soft tissue neck region involving the anterior margin of the sternocleidomastoid muscle as well as the medial inferior aspect of the right parotid. 2. No evidence for airway compromise although there is very subtle right peritonsillar prominence as compared to the contralateral left. 3. Probable left retroclavicular 1.5 cm node. 4. Neoplastic processes diagnosis of exclusion." The patient was subsequently referred to Dr. Summers evaluated the patient and performed an examination which revealed induration of the right tonsil with firmness to palpation that extended to the inferior pole of the right tonsil but no involvement of the base of tongue. Dr. Summers also performed an NPL exam which did not reveal any extension to the base of tongue or any other involvement beyond the right tonsil. The patient was subsequently referred to Dr. Curiel from ENT at [facility] who did examine the patient and attempted 1 biopsy in the office and then took him to the operating room for a MicroDirect laryngoscopy with biopsy on 03/26/2016. He did biopsy the right palatine tonsil which was positive for non-keratinized squamous cell carcinoma (p16 status is unavailable the time of our consultation from the pathology report and has been requested). In conclusion, Dr. Curiel advised against transoral resection of the tonsillar tumor due to a retropharyngeal carotid and recommended up front chemotherapy and radiation therapy. The patient subsequently had a PET/CT scan on 04/01/2016 which showed no evidence of distant metastatic disease and reported these findings in the head and neck region: "HEAD AND NECK: There is 1.8 cm FDG avid right tonsillar mass which demonstrates intense FDG uptake with an SUV max of 7. There is again noted the right neck mass/lymph nodes anterior to the right sternocleidomastoid muscle. This measures 4.0 x 2.4 cm. The necrosis may have resolved. This also demonstrates intense FDG uptake with an SUV max of 5.7. There is moderate FDG uptake associated with a right lateral retropharyngeal 1 cm lymph node demonstrating an SUV max of 3. This is consistent with a metastatic focus." The patient was subsequently seen in consultation by Dr. Jean-Paul France from medical oncology who discussed chemotherapy and radiation therapy. The patient and his family stated they wanted to further considered options including homeopathic medicine. In the interim, we are seeing the patient to discuss the role of radiation therapy. Overall, the patient is doing relatively well. He states his energy, appetite and weight are all stable. He denies any dysphagia. He has no other complaints. He completed combined radiation and chemotherapy. Radiation was completed 06/18 he received 7000 cGy Interim History Please been doing well over the past 9 months. He does continue to 2 his food thoroughly. He has to drink water at times between swallowing boluses of food. He especially has difficulty with meats and breads. His appetite is good and weight has gone up. He gained 9 pounds over the past year. He is noted no changes of the mouth throat or neck. He has seen Dr. Castellanos in follow-up and has had recheck scopings. He had an NPL examination July 08, 2017. There is been no signs of recurrence. He has had recheck laboratory studies and visits with Dr. Sunshine. Allergies Coded Allergies: No Known Allergies (Verified , 01/06/17) Home Medications Scheduled Fish Oil ([place]-3), 2,000 MG PO DAILY Misc Natural Products ([place] Extr), 1 CAP PO DAILY Nattokinase (Nattokinase), 150 MG PO DAILY Probiotic Product (Probiotic), 1 CAP PO DAILY Warfarin Sod (Jantoven), 7.5 MG PO 6XWK Warfarin Sod (Jantoven), 10 MG PO WK [Artichoke Extract], 450 MG PO QAM [Tangy [place]], 1 DOSE PO QAM [Univase Forte], 1 CAP PO QAM Review of Systems Gastrointestinal: Symptoms: WNL Oral: Symptoms: No Problems, Scant Saliva/Dry Mouth Other Oral Symptoms: Continues w/slight altered taste;Must chew foods into small bites; Respiratory: Symptoms: WNL Urinary: Symptoms: WNL Skin: Symptoms: No Problems Physical Exam Vital Signs Date Time Temp Pulse Resp B/P (MAP) Pulse Ox O2 Delivery O2 Flow Rate FiO2 09/17/17 13:28 36.6 76 12 134/75 96 Fatigue: None General Appearance: no apparent distress Eyes: normal inspection, EOMI ENT: normal ENT inspection, hearing grossly normal, + pertinent finding (No visible lesions of the anterior or posterior pharynx. There are no visible lesions of the soft or hard palate. There are no changes of the tongue or buccal mucosa. He has no issues with trismus.) Neck: supple, no adenopathy, thyroid normal, + pertinent finding (No carotid bruits) Respiratory/Chest: lungs clear, no respiratory distress, no accessory muscle use Cardiovascular: regular rate, rhythm, no gallop, no murmur Neurologic/Psychiatric: no motor/sensory deficits, alert, normal mood/affect Skin: warm/dry Pain Management Patient Reports Pain: No Pain Location: None Patient Preferred Pain Scale: 0 - 10 Initial Pain Intensity: 0.0 Pain Management Plan He denies pain therefore requires no pain management. Laboratory Laboratory Results: not applicable Pathology Pathology Results: not applicable Imaging Imaging Studies: not applicable Additional Studies NPL examination by on July 08, 2017. Assessment & Plan Plan: Patient is also seen and examined by Dr. Quezada. He will continue regular follow-up with medical oncology and ENT. Continue follow-up with his primary care physician. We asked him to return to our office in 1 year. He may call if he has any questions or concerns in the interim. Assessment & Plan (Attending) I agree with note created by Alethea Salomon PA-C. I reviewed the patient's chart and information with her. I have examined and evaluated the patient. I reviewed relevant clinical information and answered the patient's and/or family' s questions. QUILT STUFFER Total Time In Follow-Up I spent 20 minutes speaking to the patient and performing examination. I spent 15 minutes reviewing information and completing this note. AK Total Time (Attending) In Follow-Up I spent 15 minutes examining and counseling the patient. QUILT STUFFER Copy To Terry Summers MD; Jean-Paul France D.O.; Rommel Adame M.D.
== END | disposition home or self-care (01) ==
LOC: C.ONC 12:51
PROVIDERS: ATTEND Physician Assistant Medical
DX: Z08 Encounter for follow-up examination after completed treatment for malignant neoplasm (principal); Z92.3 Personal history of irradiation; Z85.819 Personal history of malignant neoplasm of unspecified site of lip, oral cavity, and pharynx

== ENCOUNTER → 2017-10-24 | Outpatient (CLI) | payer BC | END | disposition home or self-care (01) | LOC: C.LABBFT 08:00 | PROVIDERS: ATTEND Urology | DX: R97.20 Elevated prostate specific antigen [PSA] (principal) ==